=== PATIENT | male | born 1935 | race Caucasian/White ===

== ENCOUNTER 2017-03-02 03:14 | Emergency (ER) | payer MEDICARE, BC ==
--- NOTE | ~2017-03-02 | ER ---
PATIENT'S NAME: MOOSE TRAYLOR [facility] AGE: 82 Y [address] ROOM: [place] [id number] LOCATION: [facility] ADMIT DATE: 03/02/2017 ER/Outpatient Report DISCHARGE DATE: 03/02/2017 FAMILY PHYSICIAN: Immanuel Clark MD ATTENDING PHYSICIAN: Angel Lopez TIME OF ADMIT: 0314 hours. TIME SEEN: 0330 hours. HISTORY OF PRESENT ILLNESS: This is an 82-year-old white gentleman with a history of metastatic prostate cancer in with complaint of left flank pain radiating into his left groin that began about 8 o'clock last night associated with nausea without vomiting. It is fairly severe pain, similar to previous kidney stones. The pain has been waxing and waning since its onset. PAST MEDICAL HISTORY: Significant for prostate cancer with known bone mets diagnosed 2 years ago. CURRENT MEDICATIONS: See list. REVIEW OF SYSTEMS: Otherwise negative. SOCIAL HISTORY: He is . He is a nonsmoker. PHYSICAL EXAMINATION: GENERAL: Alert, pleasant, cooperative male, who appeared to be uncomfortable, in no acute physiologic distress. SKIN: Warm and dry. Color is pale. HEAD, EARS, EYES, NOSE, AND THROAT: Normal. NECK: Supple. HEART: Regular rate and rhythm without murmur. LUNGS: Clear. ABDOMEN: Soft. He had moderate left CVA tenderness. EXTREMITIES: Normal. NEUROLOGIC: Normal. LABORATORY DATA: Urinalysis was positive for blood. Negative for nitrites. There were 2-5 PATIENT'S NAME: MOOSE TRAYLOR [facility] AGE: 82 Y [address] ROOM: [place] [address] LOCATION: [facility] ADMIT DATE: 03/02/2017 ER/Outpatient Report DISCHARGE DATE: 03/02/2017 FAMILY PHYSICIAN: Immanule Clark MD ATTENDING PHYSICIAN: Angel Lopez wbc's per high-power field, however, there were rare wbc clumps. CT scan revealed some perinephric stranding on the left kidney. No hydronephrosis or hydroureter. There were stones present in the bladder. ASSESSMENT: Renal colic, questionable urinary tract infection with rare clumps of white blood cells. PLAN: Percocet as needed for pain. Keflex 500 mg 4 times a day. Follow up with his regular doctor in 24-48 hours. ANGEL LOPEZ MD JDB/modl /[id number] d: 03/02/17 0637 t: 03/03/17 0601, OUTPATIENT REPORT
[~2017-03-02 03:14] MED LIST: BICALUTAMIDE50 MG PO; CALCIUM 600 +1 EAC4 PO; DEPAKENE250 MG PO; MULTI VITAMIN1 EACH PO; TRELSTAR11.25 MG/2 IM; TYLENOL/COD#31 TAB PO; VITAMIN B-1100 MG PO; XGEVA120 MG/1.7 IM
[2017-03-02 03:36] LABS: BILIRUBIN URINE NEGATIVE (NEGATIVE); BLOOD URINE 10 /UL (NEGATIVE); COLOR URINE YELLOW (YELLOW); GLUCOSE URINE NEGATIVE (NEGATIVE); KETONE URINE 5 mg/dL (NEGATIVE); LEUKOCYTES URINE 25 /UL (NEGATIVE); NITRITE URINE NEGATIVE (NEGATIVE); PROTEIN URINE 15 mg/dL (NEGATIVE); SPEC GRAVITY URINE 1.025 (1.003-1.035); TURBIDITY URINE CLEAR (CLEAR); UROBILINOGEN URINE NORMAL (NORMAL)
[2017-03-02 03:42] LABS: BACTERIA URINE MODERATE (NEGATIVE); EPITHELIAL URINE 0-2 #/HPF (NEGATIVE); MUCUS URINE 3+ (NEGATIVE); RBC URINE 0-2 #/HPF (NEGATIVE); WBC CLUMPS URINE RARE (NEGATIVE)
[2017-03-02 03:46] LABS: BASOPHIL # 0.1 K/uL (0.0-0.2); EOSINOPHIL # 0.2 K/uL (0.0-0.5); EOSINOPHIL % 3.9 %; HEMATOCRIT 40.7 % (33.0-50.0); HEMOGLOBIN 13.6 g/dL (11.0-16.0); IMMATURE GRANULOCYTE % 0.2 %; LYMPHOCYTE # 1.9 K/uL (0.8-4.0); LYMPHOCYTE % 38.3 %; MCH 30.8 pg (27.0-34.0); MCHC 33.4 gm/dL (32.0-36.5); MCV 92.3 fl (83.0-98.0); MONOCYTE # 0.5 K/uL (0.0-1.0); MONOCYTE % 10.8 %; MPV 9.4 fl (9.4-12.4); NEUTROPHIL # (ANC) 2.3 K/uL (1.4-9.0); NEUTROPHIL % 45.8 %; NRBC % 0 /100WBC (0-0.00); PLATELET COUNT 214 K/uL (150-450); RBC 4.41 M/uL (3.50-5.50); RDW-CV 12.9 % (11.9-14.6); WBC 4.9 K/uL (4.0-11.0)
[2017-03-02 04:09] LABS: ALBUMIN 3.8 gm/dL (3.5-5.0); ALK PHOS 125 IU/L (33-138); ALT 26 IU/L (12-78); ANION GAP 17.2 (10.0-19.0); AST 28 IU/L (10-40); BLOOD UREA NITROGEN 16 mg/dL (6-24); CALCIUM 8.6 mg/dL (8.5-10.5); CHLORIDE 104 mMol/L (96-110); CO2 25 mMol/L (22-32); CREATININE 0.9 mg/dL (0.6-1.3); ESTIMATED GFR (MDRD EQUATION) > 60; POTASSIUM 4.2 mMol/L (3.7-5.1); SODIUM 142 mMol/L (135-145); TOTAL BILIRUBIN 0.4 mg/dL (0.0-1.5); TOTAL PROTEIN 7.2 g/dL (6.0-8.4)
== END 2017-03-02 05:13 | disposition disaster alternative care site (69) ==
LOC: GMED 03:14
PROVIDERS: Emergency Medicine
DX: N23 Unspecified renal colic (principal); C61 Malignant neoplasm of prostate; C79.51 Secondary malignant neoplasm of bone; Z88.2 Allergy status to sulfonamides; Z79.899 Other long term (current) drug therapy
CPT/HCPCS: J1170; J2405